=== PATIENT | male | born 1945 | race Caucasian/White ===

== ENCOUNTER 2017-08-13 08:57 | Outpatient (CLI) ==
--- NOTE | 2017-08-13 12:13 | MRI ---
EXAM: MRI left shoulder without contrast COMPARISON: None available. HISTORY: Left shoulder pain. TECHNIQUE: Multiplanar noncontrast MR images of the left shoulder were acquired using a 1.2 Xochitl ma gnet. FINDINGS: There is marked supraspinatus and subscapularis tendinosis with moderate infraspinatus ten dinosis. Tiny partial-thickness/rim rent tear involving the articular surface insertional fibers of the supraspinatus extending through the supraspinatus/infraspinatus junction measuring 2 mm medial to lateral dimension. There is also thinning bursal surface irregularity the supraspinatus from the le neelam of the acromion through the critical zone measuring 1.8 cm extent related bursal surface fraying/ partial-thickness bursal surface tear. Linear intrasubstance fissuring/tearing of the distal subscap ularis. No full-thickness rotator cuff tear or tendon retraction. Small amount of fluid in the suba cromial/subdeltoid bursa. Limited assessment of the glenoid labrum on this non arthrographic study. Hyperintense signal involv ing the anterior glenoid labrum both above and below the glenoid equator with possible tear at that s ite. Moderately severe glenohumeral joint osteoarthrosis without acute fracture or dislocation. 4 m m bone spur along the glenoid attachment of the inferior glenohumeral joint capsule suggesting sequel a of an old capsulolabral injury with stripping. Small glenohumeral joint effusion. The long head of the biceps is located within the bicipital groove with tendinosis and partial tear o f the the articular segment. Marked hypertrophic degenerative changes of the acromioclavicular joint. No evidence of an os acromi soumya or abnormal widening of the acromioclavicular joint space. No soft tissue mass identified. IMPRESSION: 1. Marked rotator cuff tendinosis. Small partial-thickness/rim rent tear of the insertional fibers of the supraspinatus extending through the supraspinatus/infraspinatus junction. Bursal surface fray ing/partial-thickness bursal surface tear of the supraspinatus. Linear intrasubstance fissuring/tear ing of the subscapularis. No full-thickness rotator cuff tear or tendon retraction. 2. Fluid in the subacromial/subdeltoid bursa. 3. Hyperintense signal throughout the anterior glenoid labrum related to intrasubstance degeneration and possible superimposed tear. MR arthrography could be considered for further assessment. Small bone spur along the glenoid attachment the inferior joint capsule suggesting sequela of an old capsul ar injury with stripping. 4. Tendinosis/partial tear of the long head of the biceps. 5. Marked hypertrophic degenerative changes of the acromioclavicular joint. 6. Moderate glenohumeral joint osteoarthrosis with a small glenohumeral joint effusion.
== END 2017-08-13 08:58 | disposition home or self-care (01) ==
LOC: RAD 08:57
PROVIDERS: ATTEND Family Medicine
DX: M25.512 Pain in left shoulder (principal)